=== PATIENT | male | born 1965 | race Caucasian/White ===

== ENCOUNTER 2019-05-04 10:58 | Emergency (ER) | payer OTHER ==
[~2019-05-04] VITALS: Ht 182.9 cm; Wt 118.2 kg
[2019-05-04 11:06] VITALS: BP 165/109
--- NOTE | 2019-05-04 11:28 | NUR ---
FIRST CONTACT WITH PT. PT C/O RLE ([place]) PAIN/SWELLING AFTER HIT ON MINIVAN DOOR WHILE MOVING, ONSET ~0630 THIS AM. PT'S AOX4. RESPS EVEN AND UNLABORED.
--- NOTE | 2019-05-04 12:13 | NUR ---
PT GIVEN DC INSTRUCTIONS AND SCRIPT. PT EDUCATED REAGRDING DC MEDICATION. PT AMB TOD C WITH STEADY GAIT. NO ACUTE DISTRESS AT DC.
== END 2019-05-04 12:14 | disposition home or self-care (01) ==
LOC: ED 12:08
DX: S80.11XA Contusion of right lower leg, initial encounter (principal); F17.200 Nicotine dependence, unspecified, uncomplicated; X58.XXXA Exposure to other specified factors, initial encounter; Y93.89 Activity, other specified; Y92.89 Other specified places as the place of occurrence of the external cause; Y99.8 Other external cause status
CPT/HCPCS: 99283